=== PATIENT | male | born 1990 | race Caucasian/White ===

== ENCOUNTER 2016-08-05 22:40 | Emergency (ER) | payer OTHER ==
[2016-08-05 23:59] VITALS: BP 151/82
[2016-08-06] MEDS ORDERED: Cephalexin 500 MG Cap PO ONE (00:45)
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
== END 2016-08-06 00:56 | disposition home or self-care (01) ==
LOC: DL.ED 22:40
DX: S61.431A Puncture wound without foreign body of right hand, initial encounter (principal); F17.210 Nicotine dependence, cigarettes, uncomplicated; W26.8XXA Contact with other sharp object(s), not elsewhere classified, initial encounter
CPT/HCPCS: 73130; 99283; A9270

== ENCOUNTER 2019-08-27 04:17 | Emergency (ER) | payer OTHER ==
[2019-08-27 04:29] VITALS: BP 130/80; PULSE 87
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
== END 2019-08-27 05:38 | disposition home or self-care (01) ==
LOC: DL.ED 04:17
DX: S00.83XA Contusion of other part of head, initial encounter (principal); Y04.8XXA Assault by other bodily force, initial encounter
CPT/HCPCS: 70486; 99284-25

== ENCOUNTER 2020-06-24 21:00 | Emergency (ER) | payer OTHER ==
[2020-06-24 21:12] VITALS: BP 145/93; PULSE 87
[2020-06-24] MEDS ORDERED: Naloxone 2 MG/2 ML Syringe IVPUSH ONE (21:12)
[2020-06-24] MEDS ORDERED: Sodium Chloride 0.9% 1,000 ML IV ONE (21:18)
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
[2020-06-24 21:41] LABS: ANION GAP 16.2 mEq/L (7-13); CHLORIDE,CL 105 mmol/L (98-107); SODIUM,NA 144 mmol/L (136-145)
== END 2020-06-24 22:54 | disposition home or self-care (01) ==
LOC: DL.ED 21:00
DX: F10.120 Alcohol abuse with intoxication, uncomplicated (principal); Y90.8 Blood alcohol level of 240 mg/100 ml or more
CPT/HCPCS: 36415; 80053; 80305; 80307; 81003; 85025; 99283; 99284; J7030

== ENCOUNTER 2021-12-26 00:10 | Emergency (ER) | payer OTHER ==
[2021-12-26 00:25] VITALS: BP 126/93; PULSE 89
[2021-12-26 00:53] LABS: AMPHETAMINES,URINE NEGATIVE (NEGATIVE); BARBITURATES,URINE NEGATIVE (NEGATIVE); BENZODIAZEPINE,URINE NEGATIVE (NEGATIVE); MDMA (ECSTASY), URINE NEGATIVE (NEGATIVE); METHADONE,URINE NEGATIVE (NEGATIVE); METHAMPHETAMINES,URINE NEGATIVE (NEGATIVE); OPIATES,URINE NEGATIVE (NEGATIVE); OXYCODONE,URINE NEGATIVE (NEGATIVE); PHENCYCLIDINE,URINE NEGATIVE (NEGATIVE); TCA,URINE NEGATIVE (NEGATIVE)
== END 2021-12-26 02:56 | disposition left against medical advice (07) ==
LOC: DL.ED 00:10
DX: F10.129 Alcohol abuse with intoxication, unspecified (principal)
CPT/HCPCS: 36415; 70450; 72125; 80053; 80305-QW; 80307; 81003; 82150; 83690; 85025; 99284

== ENCOUNTER 2024-10-24 15:30 | Emergency (ER) | payer BC, OTHER ==
[2024-10-24] MEDS: Lactated Ringers 1,000 ML IV ONE (15:52)
[2024-10-24 15:56] LABS: BASOPHILS PERCENT AUTO 0.4 % (0.0-1.0); EOSINOPHILS PERCENT AUTO 0.7 % (1.0-3.0); LYMPHOCYTES PERCENT AUTO 9.8 % (20.5-50.1); MONOCYTES PERCENT AUTO 7.8 % (2-8); NEUTROPHILS PERCENT AUTO 81.3 % (42.2-75.2); PLATELET COUNT,PLT 199 10^3/uL (150-450); RED BLOOD CELL COUNT 4.46 10^6/uL (4.6-6.2); WHITE BLOOD CELL COUNT,WBC 10.0 10^3/uL (5.0-10.0)
[2024-10-24 16:11] LABS: INR 0.9 (0.9-1.2)
[2024-10-24 16:18] LABS: A/G RATIO 0.9; ALANINE AMINOTRANSFERASE,ALT 27 U/L (16-63); ASPARTATE AMNIOTRANSFERASE,AST 28 U/L (15-37); BILIRUBIN TOTAL 0.6 mg/dL (0.2-1.0); BLOOD UREA NITROGEN,BUN 13 mg/dL (7-18); CARBON DIOXIDE,CO2 26 mmol/L (21-32); CHLORIDE,CL 101 mmol/L (98-107); CREATININE 1.01 mg/dL (0.70-1.30); EST CRCL DRUG DOSING (CG) 113.72 mL/min; GLUCOSE RANDOM 122 mg/dL (70-99); PHOSPHORUS 2.3 mg/dL (2.6-4.7); POTASSIUM,K 4.4 mmol/L (3.5-5.1); PROTEIN TOTAL,TP 8.1 g/dL (6.4-8.2); SODIUM,NA 137 mmol/L (136-145)
[2024-10-24 16:19] LABS: ESTIMATED GFR 100 mL/min (>=60)
[2024-10-24 16:29] VITALS: BP 137/86; PULSE 80
[2024-10-24 16:48] LABS: B-TYPE NATRIURETIC PEPTIDE,BNP < 5 pg/ml (0-100)
== END 2024-10-24 16:55 | disposition home or self-care (01) ==
LOC: DL.ED 15:30
DX: T67.1XXA Heat syncope, initial encounter (principal)
CPT/HCPCS: 36415; 80053; 83735; 83880; 84100; 84484; 85025; 85610; 93005; 96360; 99284; J7120

== ENCOUNTER 2024-10-24 18:45 | Inpatient (IN) | payer BC ==
[2024-10-24] MEDS ORDERED: Sodium Chloride 0.9% 10 ML Syringe FLUSH PRN (18:46)
[2024-10-24 19:22] LABS: LACTIC ACID 4.1 mmol/L (0.4-2.0)
[2024-10-24] MEDS: LORazepam 2 MG/ML SDV IVPUSH ONE ×2 (19:26→21:58)
[2024-10-24] MEDS: MVI, Adult with Vitamin K 10 ML, Folic Acid 1 MG, Thiamine 100 MG in Lactated Ringers 1... IV ONE (20:11)
[2024-10-24 20:13] LABS: APPEARANCE,URINE CLEAR (CLEAR); GLUCOSE,URINE NEGATIVE (NEGATIVE); OCCULT BLOOD,URINE SMALL (NEGATIVE)
[2024-10-24 20:19] LABS: AMPHETAMINES,URINE NEGATIVE (NEGATIVE); BARBITURATES,URINE NEGATIVE (NEGATIVE); MDMA (ECSTASY), URINE NEGATIVE (NEGATIVE); METHAMPHETAMINES,URINE NEGATIVE (NEGATIVE); OPIATES,URINE NEGATIVE (NEGATIVE); OXYCODONE,URINE NEGATIVE (NEGATIVE); PHENCYCLIDINE,URINE NEGATIVE (NEGATIVE); TCA,URINE NEGATIVE (NEGATIVE)
[2024-10-24 20:31] LABS: EPITHELIAL CELLS,URINE OCCASIONAL /HPF (NOT SEEN)
[2024-10-24] MEDS ORDERED: Metoprolol Tartrate 5 MG/5 ML SDV IVPUSH PRN (20:53)
[2024-10-24] MEDS ORDERED: hydrALAZINE 20 MG/ML SDV IVPUSH PRN (20:53)
[2024-10-24] MEDS ORDERED: Ondansetron 4 MG/2 ML SDV IVPUSH PRN (20:53)
[2024-10-24] MEDS ORDERED: Magnesium Hydroxide 400 MG/5 ML Susp 30 ML Cup PO PRN (20:53)
[2024-10-24] MEDS ORDERED: Sennosides/Docusate Sodium 50-8.6 MG Tab PO PRN (20:53)
[2024-10-24] MEDS ORDERED: LORazepam 2 MG/ML SDV IVPUSH PRN (21:00)
[2024-10-24] MEDS ORDERED: Flumazenil 0.1 MG/ML 5 ML MDV IVPUSH PRN (21:00)
[2024-10-25 06:09] LABS: BASOPHILS PERCENT AUTO 0.7 % (0.0-1.0); EOSINOPHILS PERCENT AUTO 2.4 % (1.0-3.0); LYMPHOCYTES PERCENT AUTO 22.2 % (20.5-50.1); MONOCYTES PERCENT AUTO 14.3 % (2-8); NEUTROPHILS PERCENT AUTO 60.4 % (42.2-75.2); PLATELET COUNT,PLT 145 10^3/uL (150-450); RED BLOOD CELL COUNT 3.98 10^6/uL (4.6-6.2); WHITE BLOOD CELL COUNT,WBC 6.0 10^3/uL (5.0-10.0)
[2024-10-25 06:27] LABS: ALANINE AMINOTRANSFERASE,ALT 25.0 U/L (16-63); ASPARTATE AMNIOTRANSFERASE,AST 36.0 U/L (15-37); BILIRUBIN TOTAL 1.4 mg/dL (0.2-1.0); BLOOD UREA NITROGEN,BUN 11.0 mg/dL (7-18); CARBON DIOXIDE,CO2 28.0 mmol/L (21-32); CHLORIDE,CL 109.0 mmol/L (98-107); CREATININE 0.88 mg/dL (0.70-1.30); EST CRCL DRUG DOSING (CG) 132.12 mL/min; GLUCOSE RANDOM 83.0 mg/dL (70-99); POTASSIUM,K 4.0 mmol/L (3.5-5.1); PROTEIN TOTAL,TP 6.4 g/dL (6.4-8.2); SODIUM,NA 143.0 mmol/L (136-145)
[2024-10-25 06:35] LABS: A/G RATIO 0.83; ESTIMATED GFR 116.0 mL/min (>=60)
[2024-10-25 16:10] VITALS: PULSE 69
[2024-10-25 20:39] VITALS: BP 146/95
== END 2024-10-25 20:00 | disposition home or self-care (01) | DRG 815 ==
LOC: DL.ED 18:45 → DL.MS 20:04
PROVIDERS: ADMIT Internal Medicine; ATTEND Internal Medicine
DX: T67.01XA Heatstroke and sunstroke, initial encounter (principal); G40.89 Other seizures; E86.0 Dehydration; M41.9 Scoliosis, unspecified; F10.90 Alcohol use, unspecified, uncomplicated; F17.200 Nicotine dependence, unspecified, uncomplicated; R55 Syncope and collapse; E87.20 Acidosis, unspecified; X58.XXXA Exposure to other specified factors, initial encounter; Z79.899 Other long term (current) drug therapy; Y92.89 Other specified places as the place of occurrence of the external cause
CPT/HCPCS: 36415; 70450; 80053; 80305-QW; 80307; 81001; 82140; 82550; 83605; 83735; 84146; 85025; 93306; 93880; 96361; 96374; 99222; 99238; 99284; 99285-25; J1953; J2060; J3411; J3490; J7030; J7120